=== PATIENT | female | born 1990 | race Caucasian/White ===

== ENCOUNTER 2017-02-11 14:05 | Outpatient (CLI) | payer OTHER ==
--- NOTE | 2017-02-11 18:10 | ULT ---
LIMITED OB ULTRASOUND GREATER THAN 14 WEEKS: 02/11/17 HISTORY: 26-year-old female with pelvic pain. Lower uterine segment appears unremarkable. Cervical length approximates 3.2 cm. the placenta appears posterior. The fetus is in variable, including breech type presentation. anatomy was not speci fically addressed. heart rate 149 beats per minute. Amniotic fluid is within normal limits. Biparietal diameter 3.2 cm - - 16 weeks, 0 days Head circumference 11.4 cm - - 15 weeks, 4 days Abdominal circumference 9.6 cm - - 15 weeks, 0 days Femur length 1.6 cm - - 14 weeks, 4 days Gestational age average 15 weeks, 2 days. EDC 08/03/17. IMPRESSION: A single viable intrauterine fetus at approximately 15 weeks, 2 days. EDC 08/03/17. POS: LOLA
== END 2017-02-11 14:06 | disposition home or self-care (01) ==
LOC: SCSULT 14:05
PROVIDERS: ATTEND Family Medicine
DX: R10.2 Pelvic and perineal pain (principal)
CPT/HCPCS: 76856

== ENCOUNTER 2018-10-23 11:35 | Emergency (ER) | payer BC ==
--- NOTE | 2018-10-23 14:38 | RAD ---
LEFT FOREARM 2 VIEWS: Date: 10/23/18 HISTORY: Injury. COMPARISON: None. FINDINGS: There is dorsal edema of the forearm. No radiopaque foreign object. No fracture or malalignment. IMPRESSION: Dorsal edema to proximal forearm without fracture, malalignment, or radiopaque foreign object. POS: CET
== END 2018-10-23 16:00 | disposition home or self-care (01) ==
LOC: ERS 11:35
DX: S51.852A Open bite of left forearm, initial encounter (principal); S71.152A Open bite, left thigh, initial encounter; S71.151A Open bite, right thigh, initial encounter; E05.90 Thyrotoxicosis, unspecified without thyrotoxic crisis or storm; Z79.899 Other long term (current) drug therapy; W54.0XXA Bitten by dog, initial encounter

== ENCOUNTER 2020-08-24 19:28 | Emergency (ER) | payer BC ==
[2020-08-24 20:11] LABS: #Basophils 0.1 thou/uL (0.0-0.2); #Eosinphils 0.2 thou/uL (0.0-0.7); #Lymphocytes 2.5 thou/uL (1.20-3.40); #Monocytes 0.7 thou/uL (0.11-0.59); #Neutrophils 4.4 thou/uL (1.40-6.50); %Basophils 0.8 % (0.0-1.0); %Lymphocytes 32.1 % (21.0-51.0); %Neutrophils 55.1 % (42.0-75.0); Hemoglobin 14.2 g/dL (12.0-16.0); Mean Corpuscular HGB CONC 33.3 g/dL (32.0-36.0); Mean Corpuscular Hemoglobin 30.4 pg (27.0-31.0); Mean Corpuscular Volume 91.3 fL (78.0-98.0); Mean Platelet Volume 7.5 fL (7.4-10.4); Platelet Count 283 thou/uL (130-400); RBC Distribution Width 11.1 % (11.5-14.5); Red Blood Cell (RBC) Count 4.65 mill/uL (4.20-5.40); White Blood Cell (WBC) Count 7.9 thou/uL (4.8-10.8)
[2020-08-24 20:32] LABS: ALT (SGPT) 21 U/L (8-55); AST (SGOT) 16 U/L (5-34); Albumin 3.9 g/dL (3.5-5.0); Alkaline Phosphatase 69 U/L (40-110); Anion Gap 12 mmol/L (10-20); BUN (Urea Nitrogen) 14 mg/dL (7.0-18.7); Bilirubin, Total 0.5 mg/dL (0.2-1.2); Calc. Creatinine Clearance 0 mL/min (70-130); Calcium 9.3 mg/dL (7.8-10.44); Carbon Dioxide 25 mmol/L (22-29); Chloride 107 mmol/L (98-107); Globulin 2.9 g/dL (2.4-3.5); Glucose 103 mg/dL (70-105); Potassium 3.7 mmol/L (3.5-5.1); Protein, Total 6.8 g/dL (6.0-8.3); Sodium 140 mmol/L (136-145)
[2020-08-24 21:29] LABS: Pregnancy Test - Urine (BHCG) Negative (Negative); Pregu Control Background? CLEAR/WHITE (CLR/WHITE); Pregu Control Bar Appear? YES (CONTROL BAR); Specific Gravity 1.043 (1.002-1.036)
[2020-08-24 21:30] LABS: Bacteria/HPF 2+ HPF (None Seen); Bilirubin Negative (Negative); Blood, Urine Negative (Negative); Clarity Clear (Clear); Glucose, Urine (Dipstick) Normal (Negative); Ketone, Urine Negative (Negative); Leukocyte 75 Leu/uL (Negative); Mucous/LPF Rare LPF (<2+); Nitrite Negative (Negative); Protein, Urine (Dipstick) 30 mg/dL (Neg-Trace); RBC/HPF 0-3 HPF (0-3); Specific Gravity, Urine 1.043 (1.002-1.036); pH, Urine 5.5 (5.0-9.0)
[2020-08-26 23:33] LABS: Chlamydia by PCR Not Detected (NotDetected); GC by PCR Not Detected (NotDetected)
== END 2020-08-24 21:27 | disposition home or self-care (01) ==
LOC: ERS 19:28
DX: R10.30 Lower abdominal pain, unspecified (principal); Z79.899 Other long term (current) drug therapy; E03.9 Hypothyroidism, unspecified
CPT/HCPCS: 36415; 80053; 81003; 81015; 81025; 85025; 87480; 87491; 87510; 87591; 87660; 99284

== ENCOUNTER 2021-12-29 09:30 | Outpatient (CLI) | payer BC | END 2021-12-29 09:31 | disposition home or self-care (01) | LOC: BICRAD 09:30 | PROVIDERS: ATTEND Family Medicine | DX: M19.90 Unspecified osteoarthritis, unspecified site (principal); M79.89 Other specified soft tissue disorders ==

== ENCOUNTER 2023-03-07 06:53 | Outpatient (CLI) | payer BC | END 2023-03-07 06:54 | disposition home or self-care (01) | LOC: BICULT 06:53 | PROVIDERS: ATTEND Family Medicine | DX: R10.84 Generalized abdominal pain (principal); K80.20 Calculus of gallbladder without cholecystitis without obstruction | CPT/HCPCS: 76700 ==

== ENCOUNTER 2023-03-15 16:28 | Outpatient (CLI) | payer BC ==
[2023-03-15 17:36] LABS: #Basophils 0.1 10x3/uL (0.0-0.2); #Eosinphils 0.3 10x3/uL (0.0-0.5); #Monocytes 0.6 10x3/uL (0.0-1.1); #Neutrophils 5.1 10x3/uL (1.5-8.4); %Basophils 0.8 % (0.0-2.0); %Eosinophils 3.6 % (0.0-6.0); %Lymphocytes 29.3 % (18.0-47.0); %Neutrophils 58.6 % (40.0-75.0); Hematocrit 40.4 % (34.9-44.5); Hemoglobin 13.3 g/dL (12.0-15.5); Mean Corpuscular HGB CONC 32.9 g/dL (32.0-36.0); Mean Corpuscular Hemoglobin 29.8 pg (27.0-33.0); Mean Corpuscular Volume 90.6 fl (81.6-98.3); Platelet Count 289 10x3/uL (150-450); RBC Distribution Width 13.1 % (11.5-14.5); Red Blood Cell (RBC) Count 4.46 10x6/uL (3.90-5.03); White Blood Cell (WBC) Count 8.8 10x3/uL (3.5-10.5)
[2023-03-15 17:38] LABS: BHCG - Serum Negative (NEGATIVE); Pregs Control Background? CLEAR/WHITE (CLR/WHITE); Pregs Control Bar Appear? YES (CONTROL BAR)
[2023-03-15 17:40] LABS: ALT (SGPT) 135 U/L (8-55); AST (SGOT) 48 U/L (5-34); Alkaline Phosphatase 134 U/L (40-110); Anion Gap 12 mmol/L (10-20); BUN (Urea Nitrogen) 13 mg/dL (7.0-18.7); Bilirubin, Direct 0.2 mg/dL (0.1-0.3); Bilirubin, Total 0.5 mg/dL (0.2-1.2); Calc. Creatinine Clearance 0 mL/min (70-130); Carbon Dioxide 25 mmol/L (22-29); Chloride 110 mmol/L (98-107); Estimated GFR 105; Globulin 2.4 g/dL (2.4-3.5); Glucose 93 mg/dL (70-105); Potassium 4.2 mmol/L (3.5-5.1); Protein, Total 6.4 g/dL (6.0-8.3); Sodium 143 mmol/L (136-145)
== END 2023-03-15 16:29 | disposition home or self-care (01) ==
LOC: LABBT 16:28
PROVIDERS: ATTEND Surgery
DX: Z01.812 Encounter for preprocedural laboratory examination (principal); K80.20 Calculus of gallbladder without cholecystitis without obstruction; R79.89 Other specified abnormal findings of blood chemistry
CPT/HCPCS: 80053; 80076; 84703; 85025

== ENCOUNTER 2023-03-18 07:19 | Day surgery (SDC) | payer BC ==
[2023-03-15 16:52] VITALS: BMI 32.9
[~2023-03-18 07:19] MED LIST: Dexamethasone 4 mg/ml Vial ONE; Lidocaine 1% PF 5 ML VIAL ONE; Ondansetron PF 4 MG/2 ML Vial ONE; PROPOFOL 40 ML ONE; Rocuronium Bromide 10 MG/ML (10ML VIAL) ONE; SUGAMMADEX SODIUM 200 MG/2 ML VIAL ONE; fentaNYL PF 100 MCG/2 ML SYRINGE ONE
[2023-03-18] MEDS ORDERED: EPINEPHrine 1 MG/ML VIAL ONE (09:59)
[2023-03-18] MEDS ORDERED: Iopamidol 15 ML ONE ×2 (09:59→10:31)
[2023-03-18] MEDS ORDERED: Bupivacaine 0.25% HCL 30 ML VIAL ONE (09:59)
[2023-03-18] MEDS ORDERED: cefOXitin 2 GM VIAL ONE (10:12)
[2023-03-18] MEDS ORDERED: Sodium Chloride 0.9% 100 ML ONE (10:12)
[2023-03-18] MEDS ORDERED: LevoFLOXacin D5W 500 mg (100 mL) BAG ONE (10:31)
[2023-03-18] MEDS ORDERED: PHENYLEPHRINE-NS 100 MCG/ML 10 ML SYRINGE ONE (10:47)
[2023-03-18] MEDS ORDERED: Ketorolac Tromethamine 30 MG (1 mL) VIAL ONE (10:47)
[2023-03-18] MEDS ORDERED: fentaNYL 50 mcg/mL 1 mL Vial ONE (11:55)
[2023-03-18] MEDS ORDERED: HYDROcodone/Acetaminophen 5/325 mg Tablet ONE (12:44)
== END 2023-03-18 13:35 | disposition home or self-care (01) ==
LOC: SDC 07:19
PROVIDERS: ATTEND Surgery
PROC: BF03YZZ Plain Radiography of Gallbladder and Bile Ducts using Other Contrast (ICD-10-PCS; principal; 2023-03-18)
PROC: 0FT44ZZ Resection of Gallbladder, Percutaneous Endoscopic Approach (ICD-10-PCS; principal; 2023-03-18)
DX: K80.10 Calculus of gallbladder with chronic cholecystitis without obstruction (principal); R94.5 Abnormal results of liver function studies; Z88.0 Allergy status to penicillin; Z79.890 Hormone replacement therapy
CPT/HCPCS: 88304; C1889; J0171; J0665; J0694; J1100; J1885; J1956; J2405; J2704; J3010; J3490; Q9967